=== PATIENT | female | born 1965 | race American Indian/Alaskan Native ===

== ENCOUNTER 2019-05-13 21:50 | Emergency (ER) | payer MEDICAID, OTHER ==
[~2019-05-13] VITALS: Ht 162.6 cm; Wt 72.0 kg
[2019-05-13] MEDS ORDERED: acetaminophen 325mg tablet PO ONE (21:55)
[2019-05-13] MEDS ORDERED: LORazepam 1 MG tablet PO ONE (21:55)
--- NOTE | 2019-05-13 22:07 | NUR ---
CONTACTED YAQUELIN CASE # [id number]
[2019-05-13] MEDS ORDERED: NO HOME MEDS (22:27)
[2019-05-13] MEDS ORDERED: NAPR-56 PO (22:47)
[2019-05-13] MEDS ORDERED: HYDR-4383 PO (22:47)
[2019-05-13 23:07] VITALS: BP 119/76
== END 2019-05-13 23:11 | disposition home or self-care (01) ==
LOC: ER 21:51
DX: S01.531A Puncture wound without foreign body of lip, initial encounter (principal); R55 Syncope and collapse; K08.89 Other specified disorders of teeth and supporting structures; F10.99 Alcohol use, unspecified with unspecified alcohol-induced disorder; Z79.899 Other long term (current) drug therapy; Y90.9 Presence of alcohol in blood, level not specified; Y04.8XXA Assault by other bodily force, initial encounter; Y93.89 Activity, other specified; Y92.89 Other specified places as the place of occurrence of the external cause; Y99.8 Other external cause status
CPT/HCPCS: 70450; 70486; 99284

== ENCOUNTER 2019-05-14 09:04 | Emergency (ER) | payer MEDICAID, OTHER ==
[~2019-05-14] VITALS: Ht 162.6 cm; Wt 74.0 kg
[~2019-05-14 09:04] MED LIST: HYDR-4383 PO; NAPR-56 PO; NO HOME MEDS
[2019-05-14 09:09] VITALS: BP 121/78
--- NOTE | 2019-05-14 09:41 | NUR ---
[facility] CALLED TIFFANY FROM [facility] THEY WILL SEND OUT A MACHINE SET UP WITHIN 30 MINUTES TO TALK WITH PT.
[2019-05-14] MEDS ORDERED: HYDROcodone/acetaminophen 10/325mg tab PO ONE (09:55)
--- NOTE | 2019-05-14 10:21 | NUR ---
[facility] AT BEDSIDE YASEMIN CONNELLY
--- NOTE | 2019-05-14 11:48 | NUR ---
PT LEFT WITH [facility].
== END 2019-05-14 11:26 | disposition home or self-care (01) ==
LOC: ER 09:05
DX: S00.83XA Contusion of other part of head, initial encounter (principal); H72.91 Unspecified perforation of tympanic membrane, right ear; F10.99 Alcohol use, unspecified with unspecified alcohol-induced disorder; Z79.899 Other long term (current) drug therapy; Y08.89XA Assault by other specified means, initial encounter; Y93.89 Activity, other specified; Y92.89 Other specified places as the place of occurrence of the external cause; Y99.8 Other external cause status; Y90.9 Presence of alcohol in blood, level not specified
CPT/HCPCS: 99283